=== PATIENT | female | born 1955 | race Caucasian/White ===

== ENCOUNTER → 2016-11-08 | Outpatient (CLI) | payer MEDICARE, BC ==
[~2016-11-08] MED LIST: CIPROFLOXACIN500 MG PO; PYRIDIUM200 MG PO; VICODIN 500 MG-1 TAB PO
[2016-11-08 10:10] LABS: BASO # 0.1 10*3/uL (0.0-0.1); BASO % 0.8 % (0.0-1.0); EOS # 0.2 10*3/uL (0.0-0.4); EOS % 3.4 % (1.0-4.0); HEMATOCRIT 38.1 % (37.0-47.0); HEMOGLOBIN 11.7 g/dl (12.0-16.0); LYMPH # 1.1 10*3/uL (1.3-4.4); LYMPH % 16.7 % (27.0-41.0); MEAN CELL VOLUME 87.6 fl (81.0-99.0); MEAN CORPUSCULAR HGB 26.9 pg (27.0-31.0); MEAN CORPUSCULAR HGB CONC 30.7 g/dl (33.0-37.0); MEAN PLATELET VOLUME 12.2 fl (9.6-12.3); MONO # 0.7 10*3/uL (0.1-1.0); MONO % 10.4 % (3.0-9.0); NEUT # 4.4 10*3/uL (2.3-7.9); NEUT % 68.4 % (47.0-73.0); PLATELET COUNT AUTOMATED 198 10*3/uL (130-400); RED BLOOD COUNT 4.35 10*6/uL (4.10-5.10); RED CELL DISTRI WIDTH 14.5 % (0-14.5); WHITE BLOOD COUNT 6.5 10*3/uL (4.8-10.8)
[2016-11-08 10:40] LABS: ALKALINE PHOSPHATASE 155 U/L (45-117); BILIRUBIN, TOTAL 0.4 mg/dl (0.2-1.0); BUN 22 mg/dl (7-24); CARBON DIOXIDE 26 mmol/L (21-32); CHLORIDE 108 mmol/L (98-107); CHOLESTEROL 132 mg/dL (<200); EST GLOM FILT AFRICAN AMERICAN > 60 ml/min; GLUCOSE 77 mg/dL (65-99); HDL CHOLESTEROL 57 mg/dl (40-60); IRON 59 ug/dL (50-170); IRON SATURATION 26 %; LDL CHOLESTEROL 45 mg/dL (9-159); MAGNESIUM 1.8 mg/dL (1.5-2.1); PHOSPHOROUS 3.2 mg/dL (2.5-4.9); POTASSIUM 4.4 mmol/L (3.5-5.1); SGOT/AST 22 IU/L (3-35); SGPT/ALT 28 U/L (12-78); SODIUM 141 mmol/L (136-145); TRIGLYCERIDES 150 mg/dl (<150); UIBC 163 ug/dL (110-365); URIC ACID 4.8 mg/dL (2.6-6.0); VLDL CHOLESTEROL 30 mg/dL (6-40)
[2016-11-08 11:02] LABS: HEMOGLOBIN A1c 5.4 % (4.8-5.6)
[2016-11-08 12:28] LABS: URINE TP/CRE RATIO 0.6 (<0.21)
[2016-11-09 09:12] LABS: TRANSFERRIN 004937 181 mg/dL (200-370)
[2016-11-09 15:06] LABS: CYCLOSPORINE, BLOOD 294 ng/mL (100-400)
== END ==
LOC: LAB 09:38
PROVIDERS: Internal Medicine Nephrology
DX: I15.1 Hypertension secondary to other renal disorders (principal); N28.89 Other specified disorders of kidney and ureter; D64.9 Anemia, unspecified; D89.9 Disorder involving the immune mechanism, unspecified; Z94.0 Kidney transplant status; Z79.899 Other long term (current) drug therapy

== ENCOUNTER → 2017-01-26 | Outpatient (CLI) | payer MEDICARE, BC ==
[2017-01-26 10:06] LABS: BASO # 0.1 10*3/uL (0.0-0.1); BASO % 1.5 % (0.0-1.0); EOS # 0.4 10*3/uL (0.0-0.4); EOS % 6.6 % (1.0-4.0); HEMATOCRIT 36.1 % (37.0-47.0); HEMOGLOBIN 11.3 g/dl (12.0-16.0); LYMPH # 0.9 10*3/uL (1.3-4.4); MEAN CELL VOLUME 87.6 fl (81.0-99.0); MEAN CORPUSCULAR HGB 27.4 pg (27.0-31.0); MEAN CORPUSCULAR HGB CONC 31.3 g/dl (33.0-37.0); MEAN PLATELET VOLUME 12.3 fl (9.6-12.3); MONO # 0.8 10*3/uL (0.1-1.0); MONO % 15.2 % (3.0-9.0); NEUT # 3.3 10*3/uL (2.3-7.9); NEUT % 60.3 % (47.0-73.0); PLATELET COUNT AUTOMATED 191 10*3/uL (130-400); RED BLOOD COUNT 4.12 10*6/uL (4.10-5.10); RED CELL DISTRI WIDTH 13.9 % (0-14.5); WHITE BLOOD COUNT 5.5 10*3/uL (4.8-10.8)
[2017-01-26 10:27] LABS: BUN 33 mg/dl (7-24); CARBON DIOXIDE 25 mmol/L (21-32); CHLORIDE 109 mmol/L (98-107); EST GLOM FILT AFRICAN AMERICAN > 60 ml/min; GLUCOSE 76 mg/dL (65-99); POTASSIUM 4.6 mmol/L (3.5-5.1); SODIUM 143 mmol/L (136-145)
[2017-01-27 16:11] LABS: CYCLOSPORINE, BLOOD 220 ng/mL (100-400)
== END ==
LOC: LAB 09:19
PROVIDERS: Internal Medicine Nephrology
DX: I15.1 Hypertension secondary to other renal disorders (principal); N28.89 Other specified disorders of kidney and ureter; D64.9 Anemia, unspecified; D89.9 Disorder involving the immune mechanism, unspecified; Z94.0 Kidney transplant status; Z79.899 Other long term (current) drug therapy

== ENCOUNTER → 2017-04-12 | Outpatient (CLI) | payer MEDICARE, BC ==
[2017-04-12 10:36] LABS: BASO # 0.1 10*3/uL (0.0-0.1); BASO % 1.1 % (0.0-1.0); EOS # 0.3 10*3/uL (0.0-0.4); EOS % 4.4 % (1.0-4.0); HEMOGLOBIN 11.5 g/dl (12.0-16.0); LYMPH % 17.1 % (27.0-41.0); MEAN CELL VOLUME 86.9 fl (81.0-99.0); MEAN CORPUSCULAR HGB CONC 31.1 g/dl (33.0-37.0); MEAN PLATELET VOLUME 12.3 fl (9.6-12.3); MONO # 0.8 10*3/uL (0.1-1.0); MONO % 12.5 % (3.0-9.0); NEUT # 3.9 10*3/uL (2.3-7.9); NEUT % 64.6 % (47.0-73.0); PLATELET COUNT AUTOMATED 172 10*3/uL (130-400); RED BLOOD COUNT 4.26 10*6/uL (4.10-5.10); RED CELL DISTRI WIDTH 13.6 % (0-14.5); WHITE BLOOD COUNT 6.1 10*3/uL (4.8-10.8)
[2017-04-12 10:45] LABS: BUN 29 mg/dl (7-24); CARBON DIOXIDE 25 mmol/L (21-32); CHLORIDE 108 mmol/L (98-107); CHOLESTEROL 148 mg/dL (<200); EST GLOM FILT AFRICAN AMERICAN > 60 ml/min; GLUCOSE 84 mg/dL (65-99); HDL CHOLESTEROL 49 mg/dl (40-60); LDL CHOLESTEROL 70 mg/dL (9-159); POTASSIUM 4.7 mmol/L (3.5-5.1); SODIUM 141 mmol/L (136-145); TRIGLYCERIDES 144 mg/dl (<150); VLDL CHOLESTEROL 29 mg/dL (6-40)
[2017-04-13 15:08] LABS: CYCLOSPORINE, BLOOD 292 ng/mL (100-400)
== END ==
LOC: LAB 09:19
PROVIDERS: Internal Medicine Nephrology
DX: Z48.298 Encounter for aftercare following other organ transplant (principal); D89.0 Polyclonal hypergammaglobulinemia; R79.9 Abnormal finding of blood chemistry, unspecified; Z94.0 Kidney transplant status; Z94.83 Pancreas transplant status

== ENCOUNTER → 2017-06-07 | Outpatient (CLI) | payer MEDICARE, MEDICAID ==
[2017-06-07 10:12] LABS: BASO # 0.1 10*3/uL (0.0-0.1); BASO % 0.9 % (0.0-1.0); EOS # 0.3 10*3/uL (0.0-0.4); EOS % 5.1 % (1.0-4.0); HEMATOCRIT 35.7 % (37.0-47.0); LYMPH # 0.9 10*3/uL (1.3-4.4); MEAN CELL VOLUME 87.3 fl (81.0-99.0); MEAN CORPUSCULAR HGB 26.9 pg (27.0-31.0); MEAN CORPUSCULAR HGB CONC 30.8 g/dl (33.0-37.0); MONO # 0.9 10*3/uL (0.1-1.0); MONO % 15.8 % (3.0-9.0); NEUT # 3.4 10*3/uL (2.3-7.9); NEUT % 61.8 % (47.0-73.0); PLATELET COUNT AUTOMATED 188 10*3/uL (130-400); RED BLOOD COUNT 4.09 10*6/uL (4.10-5.10); RED CELL DISTRI WIDTH 13.9 % (0-14.5); WHITE BLOOD COUNT 5.5 10*3/uL (4.8-10.8)
[2017-06-07 10:30] LABS: ALBUMIN 2.8 gm/dl (3.1-4.5); ALKALINE PHOSPHATASE 187 U/L (45-117); BILIRUBIN, TOTAL 0.4 mg/dl (0.2-1.0); BUN 29 mg/dl (7-24); CARBON DIOXIDE 25 mmol/L (21-32); CHLORIDE 109 mmol/L (98-107); CHOLESTEROL 175 mg/dL (<200); EST GLOM FILT AFRICAN AMERICAN > 60 ml/min; GLUCOSE 80 mg/dL (65-99); MAGNESIUM 1.8 mg/dL (1.5-2.1); PHOSPHOROUS 3.3 mg/dL (2.5-4.9); POTASSIUM 4.3 mmol/L (3.5-5.1); SGOT/AST 14 IU/L (3-35); SGPT/ALT 18 U/L (12-78); SODIUM 140 mmol/L (136-145); URIC ACID 5.9 mg/dL (2.6-6.0)
== END | disposition home or self-care (01) ==
LOC: LAB 09:41
PROVIDERS: Internal Medicine Nephrology
DX: Z48.298 Encounter for aftercare following other organ transplant (principal); R79.9 Abnormal finding of blood chemistry, unspecified; D89.9 Disorder involving the immune mechanism, unspecified; Z94.0 Kidney transplant status; Z94.83 Pancreas transplant status

== ENCOUNTER → 2017-08-30 | Outpatient (CLI) | payer MEDICARE, MEDICAID | LOC: RAD 10:56 | DX: M54.16 Radiculopathy, lumbar region (principal); I70.0 Atherosclerosis of aorta ==

== ENCOUNTER → 2017-10-09 | Outpatient (CLI) | payer MEDICARE, MEDICAID ==
[2017-10-09 10:25] LABS: BASO # 0.1 10*3/uL (0.0-0.1); BASO % 0.8 % (0.0-1.0); EOS # 0.2 10*3/uL (0.0-0.4); EOS % 2.8 % (1.0-4.0); HEMATOCRIT 37.7 % (37.0-47.0); HEMOGLOBIN 11.8 g/dl (12.0-16.0); LYMPH # 0.8 10*3/uL (1.3-4.4); LYMPH % 10.8 % (27.0-41.0); MEAN CELL VOLUME 87.7 fl (81.0-99.0); MEAN CORPUSCULAR HGB 27.4 pg (27.0-31.0); MEAN CORPUSCULAR HGB CONC 31.3 g/dl (33.0-37.0); MEAN PLATELET VOLUME 12.1 fl (9.6-12.3); MONO # 0.8 10*3/uL (0.1-1.0); NEUT # 5.5 10*3/uL (2.3-7.9); NEUT % 74.2 % (47.0-73.0); PLATELET COUNT AUTOMATED 230 10*3/uL (130-400); RED CELL DISTRI WIDTH 14.4 % (0-14.5); WHITE BLOOD COUNT 7.4 10*3/uL (4.8-10.8)
[2017-10-09 10:50] LABS: ALBUMIN 2.9 gm/dl (3.1-4.5); ALKALINE PHOSPHATASE 201 U/L (45-117); BUN 23 mg/dl (7-24); CHLORIDE 108 mmol/L (98-107); CHOLESTEROL 169 mg/dL (<200); CREATININE 0.93 mg/dL (0.55-1.02); PHOSPHOROUS 2.6 mg/dL (2.5-4.9); POTASSIUM 4.3 mmol/L (3.5-5.1); SGOT/AST 18 IU/L (3-35); SGPT/ALT 20 U/L (12-78); SODIUM 142 mmol/L (136-145); TOTAL PROTEIN 7.5 gm/dL (6.4-8.2); URIC ACID 5.2 mg/dL (2.6-6.0)
[2017-10-10 14:06] LABS: CYCLOSPORINE, BLOOD 244 ng/mL (100-400)
== END | disposition home or self-care (01) ==
LOC: LAB 09:51
PROVIDERS: Internal Medicine Nephrology
DX: Z48.298 Encounter for aftercare following other organ transplant (principal); R79.9 Abnormal finding of blood chemistry, unspecified; D89.9 Disorder involving the immune mechanism, unspecified; Z94.0 Kidney transplant status; Z94.83 Pancreas transplant status

== ENCOUNTER → 2018-01-24 | Outpatient (CLI) | payer MEDICARE ==
[2018-01-24 10:15] LABS: BASO % 0.7 % (0.0-1.0); EOS # 0.2 10*3/uL (0.0-0.4); EOS % 4.1 % (1.0-4.0); HEMATOCRIT 38.1 % (37.0-47.0); HEMOGLOBIN 11.8 g/dl (12.0-16.0); LYMPH # 0.9 10*3/uL (1.3-4.4); LYMPH % 16.8 % (27.0-41.0); MEAN CORPUSCULAR HGB 26.9 pg (27.0-31.0); MEAN PLATELET VOLUME 12.6 fl (9.6-12.3); MONO # 0.8 10*3/uL (0.1-1.0); MONO % 14.6 % (3.0-9.0); NEUT # 3.4 10*3/uL (2.3-7.9); NEUT % 63.4 % (47.0-73.0); PLATELET COUNT AUTOMATED 166 10*3/uL (130-400); RED BLOOD COUNT 4.38 10*6/uL (4.10-5.10); RED CELL DISTRI WIDTH 13.7 % (0-14.5); WHITE BLOOD COUNT 5.4 10*3/uL (4.8-10.8)
[2018-01-24 10:50] LABS: ALBUMIN 2.9 gm/dl (3.1-4.5); ALKALINE PHOSPHATASE 189 U/L (45-117); BUN 20 mg/dl (7-24); CHLORIDE 107 mmol/L (98-107); CHOLESTEROL 163 mg/dL (<200); CREATININE 0.88 mg/dL (0.55-1.02); POTASSIUM 4.2 mmol/L (3.5-5.1); SGOT/AST 18 IU/L (3-35); SGPT/ALT 18 U/L (12-78); SODIUM 142 mmol/L (136-145); TOTAL PROTEIN 7.3 gm/dL (6.4-8.2); URIC ACID 5.5 mg/dL (2.6-6.0)
== END | disposition home or self-care (01) ==
LOC: LAB 09:55
PROVIDERS: Internal Medicine Nephrology
DX: R79.9 Abnormal finding of blood chemistry, unspecified (principal); Z94.83 Pancreas transplant status; Z94.0 Kidney transplant status; D89.9 Disorder involving the immune mechanism, unspecified; Z48.298 Encounter for aftercare following other organ transplant

== ENCOUNTER → 2018-04-12 | Outpatient (CLI) | payer MEDICARE ==
[2018-04-12 09:45] LABS: BASO # 0.1 10*3/uL (0.0-0.1); BASO % 0.9 % (0.0-1.0); EOS # 0.2 10*3/uL (0.0-0.4); EOS % 3.5 % (1.0-4.0); HEMATOCRIT 37.6 % (37.0-47.0); HEMOGLOBIN 11.5 g/dl (12.0-16.0); LYMPH # 0.8 10*3/uL (1.3-4.4); MEAN CELL VOLUME 87.9 fl (81.0-99.0); MEAN CORPUSCULAR HGB 26.9 pg (27.0-31.0); MEAN CORPUSCULAR HGB CONC 30.6 g/dl (33.0-37.0); MEAN PLATELET VOLUME 13.2 fl (9.6-12.3); MONO # 0.8 10*3/uL (0.1-1.0); MONO % 14.5 % (3.0-9.0); NEUT # 3.6 10*3/uL (2.3-7.9); NEUT % 66.7 % (47.0-73.0); PLATELET COUNT AUTOMATED 151 10*3/uL (130-400); RED BLOOD COUNT 4.28 10*6/uL (4.10-5.10); RED CELL DISTRI WIDTH 14.6 % (0-14.5); WHITE BLOOD COUNT 5.4 10*3/uL (4.8-10.8)
[2018-04-12 10:11] LABS: ALBUMIN 3.2 gm/dl (3.1-4.5); CREATININE 1.16 mg/dL (0.55-1.02); PHOSPHOROUS 3.4 mg/dL (2.5-4.9); POTASSIUM 4.3 mmol/L (3.5-5.1); TOTAL PROTEIN 7.2 gm/dL (6.4-8.2); URIC ACID 7.2 mg/dL (2.6-6.0)
[2018-04-12 10:28] LABS: FERRITIN 79.3 ng/mL (10.0-291.0); PTH INTACT 114.7 pg/mL (14.0-72.0)
[2018-04-13 08:09] LABS: TRANSFERRIN 004937 182 mg/dL (200-370)
[2018-04-13 15:07] LABS: CYCLOSPORINE, BLOOD 132 ng/mL (100-400)
[2018-04-15 08:06] LABS: SIROLIMUS (RAPAMUNE) 716712 9.3 ng/mL (3.0-20.0)
[2018-04-16 15:07] LABS: BK QUANTITATION PCR Negative (Negative)
== END | disposition home or self-care (01) ==
LOC: LAB 08:48
PROVIDERS: Internal Medicine Nephrology
DX: D50.9 Iron deficiency anemia, unspecified (principal); D89.9 Disorder involving the immune mechanism, unspecified; R60.0 Localized edema; Z94.0 Kidney transplant status; Z79.899 Other long term (current) drug therapy

== ENCOUNTER → 2018-08-10 | Outpatient (CLI) | payer MEDICARE ==
[2018-08-10 10:02] LABS: BASO # 0.1 10*3/uL (0.0-0.1); BASO % 1.2 % (0.0-1.0); EOS # 0.4 10*3/uL (0.0-0.4); EOS % 6.2 % (1.0-4.0); HEMATOCRIT 36.7 % (37.0-47.0); HEMOGLOBIN 11.4 g/dl (12.0-16.0); LYMPH # 0.9 10*3/uL (1.3-4.4); MEAN CORPUSCULAR HGB 27.3 pg (27.0-31.0); MEAN CORPUSCULAR HGB CONC 31.1 g/dl (33.0-37.0); MEAN PLATELET VOLUME 12.8 fl (9.6-12.3); MONO # 0.9 10*3/uL (0.1-1.0); MONO % 15.3 % (3.0-9.0); NEUT # 3.6 10*3/uL (2.3-7.9); PLATELET COUNT AUTOMATED 200 10*3/uL (130-400); RED BLOOD COUNT 4.17 10*6/uL (4.10-5.10); RED CELL DISTRI WIDTH 14.4 % (0-14.5); WHITE BLOOD COUNT 5.8 10*3/uL (4.8-10.8)
[2018-08-10 10:12] LABS: BUN 22 mg/dl (7-24); CHLORIDE 109 mmol/L (98-107); CREATININE 0.88 mg/dL (0.55-1.02); POTASSIUM 4.4 mmol/L (3.5-5.1); SODIUM 142 mmol/L (136-145)
== END | disposition home or self-care (01) ==
LOC: LAB 09:25
PROVIDERS: Internal Medicine Nephrology
DX: I12.9 Hypertensive chronic kidney disease with stage 1 through stage 4 chronic kidney disease, or unspecified chronic kidney disease (principal); N18.9 Chronic kidney disease, unspecified; E78.5 Hyperlipidemia, unspecified; Z94.0 Kidney transplant status

== ENCOUNTER → 2018-11-06 | Outpatient (CLI) | payer MEDICARE ==
[2018-11-06 12:28] LABS: BUN 25 mg/dl (7-24); CHLORIDE 109 mmol/L (98-107); CREATININE 1.05 mg/dL (0.55-1.02); POTASSIUM 4.6 mmol/L (3.5-5.1); SODIUM 143 mmol/L (136-145)
[2018-11-07 15:07] LABS: CYCLOSPORINE, BLOOD 191 ng/mL (100-400)
[2018-11-09 10:09] LABS: SIROLIMUS (RAPAMUNE) 716712 7.8 ng/mL (3.0-20.0)
== END | disposition home or self-care (01) ==
LOC: LAB 11:10
PROVIDERS: Internal Medicine Nephrology
DX: Z09 Encounter for follow-up examination after completed treatment for conditions other than malignant neoplasm (principal); R79.9 Abnormal finding of blood chemistry, unspecified; Z94.0 Kidney transplant status

== ENCOUNTER → 2019-01-31 | Outpatient (CLI) | payer MEDICARE, MEDICAID ==
[2019-01-31 10:02] LABS: BASO # 0.1 10*3/uL (0.0-0.1); BASO % 1.2 % (0.0-1.0); EOS # 0.4 10*3/uL (0.0-0.4); EOS % 6.9 % (1.0-4.0); HEMATOCRIT 37.8 % (37.0-47.0); LYMPH # 0.9 10*3/uL (1.3-4.4); LYMPH % 14.3 % (27.0-41.0); MEAN CELL VOLUME 86.7 fl (81.0-99.0); MEAN CORPUSCULAR HGB 27.5 pg (27.0-31.0); MEAN CORPUSCULAR HGB CONC 31.7 g/dl (33.0-37.0); MEAN PLATELET VOLUME 12.7 fl (9.6-12.3); MONO # 0.8 10*3/uL (0.1-1.0); MONO % 12.6 % (3.0-9.0); NEUT # 3.9 10*3/uL (2.3-7.9); NEUT % 64.8 % (47.0-73.0); PLATELET COUNT AUTOMATED 183 10*3/uL (130-400); RED BLOOD COUNT 4.36 10*6/uL (4.10-5.10); RED CELL DISTRI WIDTH 13.8 % (0-14.5)
[2019-01-31 10:36] LABS: CHLORIDE 110 mmol/L (98-107); PHOSPHOROUS 3.2 mg/dL (2.5-4.9); POTASSIUM 3.9 mmol/L (3.5-5.1); SODIUM 141 mmol/L (136-145)
[2019-01-31 10:45] LABS: ALBUMIN 2.7 gm/dl (3.1-4.5); ALKALINE PHOSPHATASE 188 U/L (45-117); BUN 31 mg/dl (7-24); CHOLESTEROL 220 mg/dL (<200); CREATININE 0.97 mg/dL (0.55-1.02); HDL CHOLESTEROL 43 mg/dl (40-60); IRON 53 ug/dL (50-170); LDL CHOLESTEROL 137 mg/dL (9-159); SGOT/AST 13 IU/L (3-35); SGPT/ALT 16 U/L (12-78); TOTAL IRON BINDING CAPACITY 189 ug/dl (250-450); TOTAL PROTEIN 6.8 gm/dL (6.4-8.2); TRIGLYCERIDES 199 mg/dl (<150); URIC ACID 6.2 mg/dL (2.6-6.0); VLDL CHOLESTEROL 40 mg/dL (6-40)
[2019-01-31 11:24] LABS: FERRITIN 61.7 ng/mL (10.0-291.0)
[2019-01-31 11:25] LABS: PTH INTACT 66.2 pg/mL (18.5-88.0)
[2019-02-01 15:04] LABS: CYCLOSPORINE, BLOOD 315 ng/mL (100-400)
[2019-02-02 09:05] LABS: SIROLIMUS (RAPAMUNE) 716712 5.1 ng/mL (3.0-20.0)
[2019-02-02 14:04] LABS: BK QUANTITATION PCR Negative (Negative)
== END | disposition home or self-care (01) ==
LOC: LAB 09:24
PROVIDERS: Internal Medicine Nephrology
DX: I12.9 Hypertensive chronic kidney disease with stage 1 through stage 4 chronic kidney disease, or unspecified chronic kidney disease (principal); N18.9 Chronic kidney disease, unspecified; E78.5 Hyperlipidemia, unspecified; D50.9 Iron deficiency anemia, unspecified; D89.9 Disorder involving the immune mechanism, unspecified; Z94.0 Kidney transplant status; Z79.899 Other long term (current) drug therapy

== ENCOUNTER → 2019-07-04 | Outpatient (CLI) | payer MEDICARE, MEDICAID ==
[2019-07-04 10:44] LABS: BASO # 0.1 10*3/uL (0.0-0.1); BASO % 1.3 % (0.0-1.0); EOS # 0.3 10*3/uL (0.0-0.4); EOS % 4.8 % (1.0-4.0); HEMATOCRIT 38.1 % (37.0-47.0); HEMOGLOBIN 11.9 g/dl (12.0-16.0); LYMPH # 0.9 10*3/uL (1.3-4.4); LYMPH % 16.7 % (27.0-41.0); MEAN CELL VOLUME 88.6 fl (81.0-99.0); MEAN CORPUSCULAR HGB 27.7 pg (27.0-31.0); MEAN CORPUSCULAR HGB CONC 31.2 g/dl (33.0-37.0); MEAN PLATELET VOLUME 12.6 fl (9.6-12.3); MONO # 0.8 10*3/uL (0.1-1.0); MONO % 14.7 % (3.0-9.0); NEUT # 3.5 10*3/uL (2.3-7.9); NEUT % 62.3 % (47.0-73.0); PLATELET COUNT AUTOMATED 194 10*3/uL (130-400); RED CELL DISTRI WIDTH 13.9 % (0-14.5); WHITE BLOOD COUNT 5.6 10*3/uL (4.8-10.8)
[2019-07-04 11:25] LABS: ALBUMIN 3.2 gm/dl (3.1-4.5); ALKALINE PHOSPHATASE 171 U/L (45-117); BUN 27 mg/dl (7-24); CHLORIDE 108 mmol/L (98-107); CHOLESTEROL 194 mg/dL (<200); CREATININE 0.94 mg/dL (0.55-1.02); HDL CHOLESTEROL 52 mg/dl (40-60); IRON 53 ug/dL (50-170); LDL CHOLESTEROL 117 mg/dL (9-159); PHOSPHOROUS 3.4 mg/dL (2.5-4.9); POTASSIUM 4.1 mmol/L (3.5-5.1); SGOT/AST 11 IU/L (3-35); SGPT/ALT 15 U/L (12-78); SODIUM 140 mmol/L (136-145); TOTAL IRON BINDING CAPACITY 228 ug/dl (250-450); TRIGLYCERIDES 124 mg/dl (<150); URIC ACID 6.1 mg/dL (2.6-6.0); VLDL CHOLESTEROL 25 mg/dL (6-40)
[2019-07-04 11:34] LABS: FERRITIN 61.6 ng/mL (10.0-291.0); PTH INTACT 74.2 pg/mL (18.5-88.0)
[2019-07-04 14:15] LABS: URINE CREATININE RANDOM < 13.00 mg/dL
[2019-07-05 15:04] LABS: CYCLOSPORINE, BLOOD 341 ng/mL (100-400)
[2019-07-06 18:05] LABS: SIROLIMUS (RAPAMUNE) 716712 4.4 ng/mL (3.0-20.0)
== END | disposition home or self-care (01) ==
LOC: LAB 09:46
PROVIDERS: Nurse Practitioner
DX: I10 Essential (primary) hypertension (principal); D89.9 Disorder involving the immune mechanism, unspecified; R79.9 Abnormal finding of blood chemistry, unspecified; Z94.83 Pancreas transplant status; Z94.0 Kidney transplant status

== ENCOUNTER → 2019-09-27 | Outpatient (CLI) | payer OTHER, MEDICAID ==
[2019-09-27 10:32] LABS: BASO # 0.1 10*3/uL (0.0-0.1); BASO % 0.8 % (0.0-1.0); EOS # 0.2 10*3/uL (0.0-0.4); EOS % 3.7 % (1.0-4.0); HEMOGLOBIN 11.4 g/dl (12.0-16.0); LYMPH # 0.9 10*3/uL (1.3-4.4); LYMPH % 15.4 % (27.0-41.0); MEAN CELL VOLUME 88.1 fl (81.0-99.0); MEAN CORPUSCULAR HGB 27.1 pg (27.0-31.0); MEAN CORPUSCULAR HGB CONC 30.8 g/dl (33.0-37.0); MEAN PLATELET VOLUME 12.8 fl (9.6-12.3); MONO # 0.7 10*3/uL (0.1-1.0); MONO % 12.3 % (3.0-9.0); NEUT # 4.1 10*3/uL (2.3-7.9); NEUT % 67.5 % (47.0-73.0); PLATELET COUNT AUTOMATED 191 10*3/uL (130-400); RED CELL DISTRI WIDTH 14.3 % (0-14.5)
[2019-09-27 10:37] LABS: ALKALINE PHOSPHATASE 150 U/L (45-117); BUN 31 mg/dl (7-24); CHLORIDE 111 mmol/L (98-107); CHOLESTEROL 178 mg/dL (<200); CREATININE 1.06 mg/dL (0.55-1.02); HDL CHOLESTEROL 53 mg/dl (40-60); IRON 67 ug/dL (50-170); LDL CHOLESTEROL 95 mg/dL (9-159); PHOSPHOROUS 3.7 mg/dL (2.5-4.9); POTASSIUM 4.1 mmol/L (3.5-5.1); SGOT/AST 17 IU/L (3-35); SGPT/ALT 18 U/L (12-78); SODIUM 142 mmol/L (136-145); TOTAL IRON BINDING CAPACITY 210 ug/dl (250-450); TRIGLYCERIDES 149 mg/dl (<150); URIC ACID 6.4 mg/dL (2.6-6.0); VLDL CHOLESTEROL 30 mg/dL (6-40)
[2019-09-27 10:56] LABS: URINE CREATININE RANDOM 64.4 mg/dL
[2019-09-27 12:06] LABS: FERRITIN 73.6 ng/mL (10.0-291.0); PTH INTACT 71.8 pg/mL (18.5-88.0)
[2019-09-30 13:09] LABS: CYCLOSPORINE, BLOOD 329 ng/mL (100-400)
[2019-09-30 17:11] LABS: SIROLIMUS (RAPAMUNE) 716712 8.7 ng/mL (3.0-20.0)
== END | disposition home or self-care (01) ==
LOC: LAB 09:32
PROVIDERS: Nurse Practitioner
DX: I10 Essential (primary) hypertension (principal); D89.9 Disorder involving the immune mechanism, unspecified; R79.9 Abnormal finding of blood chemistry, unspecified; Z94.0 Kidney transplant status; Z94.83 Pancreas transplant status

== ENCOUNTER → 2020-01-09 | Outpatient (CLI) | payer OTHER, MEDICAID ==
[2020-01-09 10:20] LABS: BASO # 0.1 10*3/uL (0.0-0.1); BASO % 1.1 % (0.0-1.0); EOS # 0.2 10*3/uL (0.0-0.4); EOS % 3.2 % (1.0-4.0); HEMATOCRIT 36.3 % (37.0-47.0); HEMOGLOBIN 11.1 g/dl (12.0-16.0); LYMPH # 1.1 10*3/uL (1.3-4.4); LYMPH % 16.3 % (27.0-41.0); MEAN CELL VOLUME 89.2 fl (81.0-99.0); MEAN CORPUSCULAR HGB 27.3 pg (27.0-31.0); MEAN CORPUSCULAR HGB CONC 30.6 g/dl (33.0-37.0); MEAN PLATELET VOLUME 12.3 fl (9.6-12.3); MONO # 0.8 10*3/uL (0.1-1.0); MONO % 12.2 % (3.0-9.0); NEUT # 4.3 10*3/uL (2.3-7.9); NEUT % 66.9 % (47.0-73.0); PLATELET COUNT AUTOMATED 180 10*3/uL (130-400); RED BLOOD COUNT 4.07 10*6/uL (4.10-5.10); RED CELL DISTRI WIDTH 13.7 % (0-14.5); WHITE BLOOD COUNT 6.5 10*3/uL (4.8-10.8)
[2020-01-09 10:29] LABS: URINE CREATININE RANDOM 43.7 mg/dL
[2020-01-09 10:46] LABS: CREATININE 1.16 mg/dL (0.55-1.02); PHOSPHOROUS 3.2 mg/dL (2.5-4.9); POTASSIUM 4.1 mmol/L (3.5-5.1); TOTAL PROTEIN 7.2 gm/dL (6.4-8.2); URIC ACID 5.9 mg/dL (2.6-6.0)
[2020-01-09 11:55] LABS: FERRITIN 98.7 ng/mL (10.0-291.0); PTH INTACT 89.5 pg/mL (18.5-88.0)
[2020-01-10 14:07] LABS: CYCLOSPORINE, BLOOD 383 ng/mL (100-400)
[2020-01-11 06:08] LABS: SIROLIMUS (RAPAMUNE) 6.8 ng/mL (3.0-20.0)
== END | disposition home or self-care (01) ==
LOC: LAB 09:28
PROVIDERS: Nurse Practitioner
DX: I10 Essential (primary) hypertension (principal); D89.9 Disorder involving the immune mechanism, unspecified; R79.9 Abnormal finding of blood chemistry, unspecified; E78.00 Pure hypercholesterolemia, unspecified; E55.9 Vitamin D deficiency, unspecified; Z94.83 Pancreas transplant status; Z94.0 Kidney transplant status

== ENCOUNTER → 2020-03-31 | Outpatient (CLI) | payer OTHER ==
[2020-03-31 10:57] LABS: BASO # 0.1 10*3/uL (0.0-0.1); BASO % 1.2 % (0.0-1.0); EOS # 0.3 10*3/uL (0.0-0.4); EOS % 4.2 % (1.0-4.0); HEMATOCRIT 36.5 % (37.0-47.0); LYMPH # 1.2 10*3/uL (1.3-4.4); LYMPH % 16.3 % (27.0-41.0); MEAN CELL VOLUME 89.9 fl (81.0-99.0); MEAN CORPUSCULAR HGB 28.1 pg (27.0-31.0); MEAN CORPUSCULAR HGB CONC 31.2 g/dl (33.0-37.0); MEAN PLATELET VOLUME 11.8 fl (9.6-12.3); MONO # 0.8 10*3/uL (0.1-1.0); NEUT % 66.9 % (47.0-73.0); PLATELET COUNT AUTOMATED 208 10*3/uL (130-400); RED BLOOD COUNT 4.06 10*6/uL (4.10-5.10); RED CELL DISTRI WIDTH 14.6 % (0-14.5); WHITE BLOOD COUNT 7.5 10*3/uL (4.8-10.8)
[2020-03-31 11:15] LABS: URINE CREATININE RANDOM 47.5 mg/dL
[2020-03-31 11:24] LABS: URIC ACID 7.3 mg/dL (2.6-6.0)
[2020-03-31 11:26] LABS: CREATININE 1.36 mg/dL (0.55-1.02); POTASSIUM 4.7 mmol/L (3.5-5.1); TOTAL PROTEIN 7.4 gm/dL (6.4-8.2)
[2020-03-31 12:09] LABS: FERRITIN 96.9 ng/mL (10.0-291.0); PTH INTACT 88.4 pg/mL (18.5-88.0)
[2020-04-01 16:08] LABS: CYCLOSPORINE, BLOOD 329 ng/mL (100-400)
[2020-04-03 22:04] LABS: SIROLIMUS (RAPAMUNE) 5.6 ng/mL (3.0-20.0)
== END | disposition home or self-care (01) ==
LOC: LAB 10:24
PROVIDERS: Family Medicine
DX: I10 Essential (primary) hypertension (principal); E55.9 Vitamin D deficiency, unspecified; E78.00 Pure hypercholesterolemia, unspecified; R79.9 Abnormal finding of blood chemistry, unspecified; D89.9 Disorder involving the immune mechanism, unspecified; Z94.83 Pancreas transplant status; Z94.0 Kidney transplant status

== ENCOUNTER → 2020-07-02 | Outpatient (CLI) | payer OTHER ==
[2020-07-02 10:16] LABS: BASO # 0.1 10*3/uL (0.0-0.1); BASO % 1.1 % (0.0-1.0); EOS # 0.3 10*3/uL (0.0-0.4); EOS % 4.5 % (1.0-4.0); HEMATOCRIT 36.5 % (37.0-47.0); LYMPH # 1.3 10*3/uL (1.3-4.4); LYMPH % 17.7 % (27.0-41.0); MEAN CELL VOLUME 88.4 fl (81.0-99.0); MEAN CORPUSCULAR HGB 27.1 pg (27.0-31.0); MEAN CORPUSCULAR HGB CONC 30.7 g/dl (33.0-37.0); MEAN PLATELET VOLUME 11.8 fl (9.6-12.3); MONO # 0.9 10*3/uL (0.1-1.0); MONO % 11.8 % (3.0-9.0); NEUT # 4.8 10*3/uL (2.3-7.9); NEUT % 64.5 % (47.0-73.0); PLATELET COUNT AUTOMATED 220 10*3/uL (130-400); RED BLOOD COUNT 4.13 10*6/uL (4.10-5.10); RED CELL DISTRI WIDTH 14.3 % (0-14.5); WHITE BLOOD COUNT 7.4 10*3/uL (4.8-10.8)
[2020-07-02 10:30] LABS: URINE CREATININE RANDOM 59.4 mg/dL
[2020-07-02 10:53] LABS: ALBUMIN 3.1 gm/dl (3.1-4.5); ALKALINE PHOSPHATASE 158 U/L (45-117); BUN 29 mg/dl (7-24); CHLORIDE 113 mmol/L (98-107); CHOLESTEROL 173 mg/dL (<200); CREATININE 1.08 mg/dL (0.55-1.02); HDL CHOLESTEROL 50 mg/dl (40-60); IRON 56 ug/dL (50-170); LDL CHOLESTEROL 95 mg/dL (9-159); POTASSIUM 4.4 mmol/L (3.5-5.1); SGOT/AST 14 IU/L (3-35); SGPT/ALT 14 U/L (12-78); SODIUM 142 mmol/L (136-145); TOTAL IRON BINDING CAPACITY 214 ug/dl (250-450); TOTAL PROTEIN 7.5 gm/dL (6.4-8.2); TRIGLYCERIDES 140 mg/dl (<150); URIC ACID 6.5 mg/dL (2.6-6.0); VLDL CHOLESTEROL 28 mg/dL (6-40)
[2020-07-02 11:28] LABS: FERRITIN 89.2 ng/mL (10.0-291.0); PTH INTACT 89.1 pg/mL (18.5-88.0)
[2020-07-03 13:10] LABS: CYCLOSPORINE, BLOOD 294 ng/mL (100-400)
== END | disposition home or self-care (01) ==
LOC: LAB 09:50
PROVIDERS: ATTEND Internal Medicine Nephrology
DX: I10 Essential (primary) hypertension (principal); R79.9 Abnormal finding of blood chemistry, unspecified; D89.9 Disorder involving the immune mechanism, unspecified; Z94.83 Pancreas transplant status; Z94.0 Kidney transplant status

== ENCOUNTER → 2020-10-05 | Outpatient (CLI) | payer OTHER ==
[2020-10-05 10:35] LABS: BASO # 0.1 10*3/uL (0.0-0.1); BASO % 0.7 % (0.0-1.0); EOS # 0.2 10*3/uL (0.0-0.4); EOS % 3.3 % (1.0-4.0); HEMATOCRIT 37.3 % (37.0-47.0); LYMPH # 1.2 10*3/uL (1.3-4.4); LYMPH % 17.3 % (27.0-41.0); MEAN CELL VOLUME 87.1 fl (81.0-99.0); MEAN CORPUSCULAR HGB 26.6 pg (27.0-31.0); MEAN CORPUSCULAR HGB CONC 30.6 g/dl (33.0-37.0); MEAN PLATELET VOLUME 12.4 fl (9.6-12.3); MONO # 0.8 10*3/uL (0.1-1.0); MONO % 11.4 % (3.0-9.0); NEUT # 4.6 10*3/uL (2.3-7.9); PLATELET COUNT AUTOMATED 212 10*3/uL (130-400); RED BLOOD COUNT 4.28 10*6/uL (4.10-5.10); RED CELL DISTRI WIDTH 14.1 % (0-14.5); WHITE BLOOD COUNT 6.9 10*3/uL (4.8-10.8)
[2020-10-05 10:44] LABS: URINE CREATININE RANDOM 73.9 mg/dL
[2020-10-05 11:01] LABS: ALBUMIN 2.8 gm/dl (3.1-4.5); ALKALINE PHOSPHATASE 185 U/L (45-117); BUN 23 mg/dl (7-24); CHLORIDE 112 mmol/L (98-107); CHOLESTEROL 164 mg/dL (<200); CREATININE 1.03 mg/dL (0.55-1.02); HDL CHOLESTEROL 45 mg/dl (40-60); IRON 55 ug/dL (50-170); LDL CHOLESTEROL 60 mg/dL (9-159); POTASSIUM 4.4 mmol/L (3.5-5.1); SGOT/AST 19 IU/L (3-35); SGPT/ALT 13 U/L (12-78); SODIUM 140 mmol/L (136-145); TOTAL IRON BINDING CAPACITY 203 ug/dl (250-450); TOTAL PROTEIN 7.5 gm/dL (6.4-8.2); TRIGLYCERIDES 293 mg/dl (<150); URIC ACID 6.6 mg/dL (2.6-6.0); VLDL CHOLESTEROL 59 mg/dL (6-40)
[2020-10-06 15:12] LABS: CYCLOSPORINE, BLOOD 352 ng/mL (100-400)
== END | disposition home or self-care (01) ==
LOC: LAB 10:06
PROVIDERS: ATTEND Internal Medicine Nephrology
DX: I10 Essential (primary) hypertension (principal); R79.9 Abnormal finding of blood chemistry, unspecified; D89.9 Disorder involving the immune mechanism, unspecified; Z94.83 Pancreas transplant status; Z94.0 Kidney transplant status

== ENCOUNTER → 2021-01-04 | Outpatient (CLI) | payer OTHER ==
[2021-01-04 10:09] LABS: BASO # 0.1 10*3/uL (0.0-0.1); EOS # 0.4 10*3/uL (0.0-0.4); EOS % 5.7 % (1.0-4.0); HEMATOCRIT 38.9 % (37.0-47.0); LYMPH # 1.2 10*3/uL (1.3-4.4); LYMPH % 17.2 % (27.0-41.0); MEAN CELL VOLUME 88.4 fl (81.0-99.0); MEAN CORPUSCULAR HGB 26.6 pg (27.0-31.0); MEAN CORPUSCULAR HGB CONC 30.1 g/dl (33.0-37.0); MEAN PLATELET VOLUME 12.1 fl (9.6-12.3); MONO # 0.7 10*3/uL (0.1-1.0); MONO % 10.2 % (3.0-9.0); NEUT # 4.7 10*3/uL (2.3-7.9); NEUT % 65.5 % (47.0-73.0); PLATELET COUNT AUTOMATED 225 10*3/uL (130-400); RED CELL DISTRI WIDTH 14.2 % (0-14.5); WHITE BLOOD COUNT 7.2 10*3/uL (4.8-10.8)
[2021-01-04 10:31] LABS: URINE CREATININE RANDOM 47.9 mg/dL
[2021-01-04 10:41] LABS: ALBUMIN 2.9 gm/dl (3.1-4.5); CREATININE 1.14 mg/dL (0.55-1.02); POTASSIUM 4.8 mmol/L (3.5-5.1)
[2021-01-04 10:43] LABS: TOTAL PROTEIN 7.2 gm/dL (6.4-8.2); URIC ACID 7.3 mg/dL (2.6-6.0)
[2021-01-04 10:58] LABS: FERRITIN 85.2 ng/mL (10.0-291.0); PTH INTACT 98.4 pg/mL (18.5-88.0)
[2021-01-05 13:06] LABS: CYCLOSPORINE, BLOOD 329 ng/mL (100-400)
== END | disposition home or self-care (01) ==
LOC: LAB 09:37
PROVIDERS: Family Medicine; ATTEND Internal Medicine Nephrology
DX: I10 Essential (primary) hypertension (principal); E78.00 Pure hypercholesterolemia, unspecified; D89.9 Disorder involving the immune mechanism, unspecified; R79.9 Abnormal finding of blood chemistry, unspecified; Z94.83 Pancreas transplant status; Z94.0 Kidney transplant status

== ENCOUNTER → 2021-01-29 | Outpatient (CLI) | payer OTHER, MEDICAID ==
[2021-01-29 10:06] LABS: HEMATOCRIT 37.2 % (37.0-47.0); MEAN CELL VOLUME 89.2 fl (81.0-99.0); MEAN CORPUSCULAR HGB 27.3 pg (27.0-31.0); MEAN CORPUSCULAR HGB CONC 30.6 g/dl (33.0-37.0); MEAN PLATELET VOLUME 12.4 fl (9.6-12.3); RED BLOOD COUNT 4.17 10*6/uL (4.10-5.10); RED CELL DISTRI WIDTH 14.6 % (0-14.5); WHITE BLOOD COUNT 6.9 10*3/uL (4.8-10.8)
[2021-01-29 10:34] LABS: BUN 28 mg/dl (7-24); CHLORIDE 111 mmol/L (98-107); CREATININE 1.04 mg/dL (0.55-1.02); POTASSIUM 4.6 mmol/L (3.5-5.1); SODIUM 140 mmol/L (136-145)
[2021-02-01 15:06] LABS: CYCLOSPORINE, BLOOD 299 ng/mL (100-400)
== END | disposition home or self-care (01) ==
LOC: LAB 09:32
PROVIDERS: ATTEND Internal Medicine Nephrology
DX: Z94.0 Kidney transplant status (principal)

== ENCOUNTER → 2021-04-02 | Outpatient (CLI) | payer OTHER, MEDICAID ==
[2021-04-02 09:50] LABS: MEAN CELL VOLUME 88.4 fl (81.0-99.0); MEAN CORPUSCULAR HGB 27.4 pg (27.0-31.0); MEAN CORPUSCULAR HGB CONC 31.1 g/dl (33.0-37.0); MEAN PLATELET VOLUME 12.2 fl (9.6-12.3); RED BLOOD COUNT 4.3 10*6/uL (4.10-5.10); RED CELL DISTRI WIDTH 14.3 % (0-14.5); WHITE BLOOD COUNT 8.4 10*3/uL (4.8-10.8)
[2021-04-02 10:19] LABS: ALBUMIN 2.9 gm/dl (3.1-4.5); CREATININE 1.12 mg/dL (0.55-1.02); POTASSIUM 4.7 mmol/L (3.5-5.1); TOTAL PROTEIN 7.3 gm/dL (6.4-8.2)
== END | disposition home or self-care (01) ==
LOC: LAB 09:23
PROVIDERS: ATTEND Family Medicine
DX: I10 Essential (primary) hypertension (principal); E78.00 Pure hypercholesterolemia, unspecified; E11.9 Type 2 diabetes mellitus without complications; D64.9 Anemia, unspecified

== ENCOUNTER → 2021-07-05 | Outpatient (CLI) | payer OTHER ==
[2021-07-05 09:43] LABS: MEAN CORPUSCULAR HGB 27.3 pg (27.0-31.0); MEAN CORPUSCULAR HGB CONC 30.3 g/dl (33.0-37.0); MEAN PLATELET VOLUME 12.2 fl (9.6-12.3); RED BLOOD COUNT 4.11 10*6/uL (4.10-5.10); RED CELL DISTRI WIDTH 14.1 % (0-14.5); WHITE BLOOD COUNT 8.4 10*3/uL (4.8-10.8)
[2021-07-05 10:09] LABS: ALBUMIN 2.6 gm/dl (3.1-4.5); ALKALINE PHOSPHATASE 153 U/L (45-117); BUN 23 mg/dl (7-24); CHLORIDE 111 mmol/L (98-107); CHOLESTEROL 186 mg/dL (<200); CREATININE 0.93 mg/dL (0.55-1.02); LDL CHOLESTEROL 97 mg/dL (9-159); POTASSIUM 4.1 mmol/L (3.5-5.1); SGOT/AST 16 IU/L (3-35); SGPT/ALT 17 U/L (12-78); SODIUM 140 mmol/L (136-145); TOTAL PROTEIN 7.1 gm/dL (6.4-8.2); TRIGLYCERIDES 154 mg/dl (<150)
== END | disposition home or self-care (01) ==
LOC: LAB 09:18
PROVIDERS: ATTEND Family Medicine
DX: E11.9 Type 2 diabetes mellitus without complications (principal); E78.00 Pure hypercholesterolemia, unspecified; E55.9 Vitamin D deficiency, unspecified

== ENCOUNTER → 2021-08-04 | Outpatient (CLI) | payer OTHER ==
[2021-08-04 09:15] LABS: HEMATOCRIT 35.5 % (37.0-47.0); MEAN CELL VOLUME 90.1 fl (81.0-99.0); MEAN CORPUSCULAR HGB 27.7 pg (27.0-31.0); MEAN CORPUSCULAR HGB CONC 30.7 g/dl (33.0-37.0); MEAN PLATELET VOLUME 12.2 fl (9.6-12.3); RED BLOOD COUNT 3.94 10*6/uL (4.10-5.10); RED CELL DISTRI WIDTH 13.8 % (0-14.5); WHITE BLOOD COUNT 7.1 10*3/uL (4.8-10.8)
[2021-08-04 09:35] LABS: ALBUMIN 2.8 gm/dl (3.1-4.5); CREATININE 1.16 mg/dL (0.55-1.02); POTASSIUM 4.5 mmol/L (3.5-5.1)
== END | disposition home or self-care (01) ==
LOC: LAB 08:59
PROVIDERS: ATTEND Internal Medicine Nephrology
DX: Z94.0 Kidney transplant status (principal)

== ENCOUNTER → 2021-10-27 | Outpatient (CLI) | payer OTHER ==
[2021-10-27 10:04] LABS: HEMATOCRIT 36.4 % (37.0-47.0); MEAN CELL VOLUME 90.1 fl (81.0-99.0); MEAN CORPUSCULAR HGB 27.7 pg (27.0-31.0); MEAN CORPUSCULAR HGB CONC 30.8 g/dl (33.0-37.0); MEAN PLATELET VOLUME 12.3 fl (9.6-12.3); RED BLOOD COUNT 4.04 10*6/uL (4.10-5.10); RED CELL DISTRI WIDTH 14.2 % (0-14.5); WHITE BLOOD COUNT 7.3 10*3/uL (4.8-10.8)
[2021-10-27 10:22] LABS: ALBUMIN 2.8 gm/dl (3.1-4.5); BUN 33 mg/dl (7-24); CHLORIDE 111 mmol/L (98-107); CHOLESTEROL 164 mg/dL (<200); POTASSIUM 4.4 mmol/L (3.5-5.1); SGOT/AST 14 IU/L (3-35); SGPT/ALT 16 U/L (12-78); SODIUM 141 mmol/L (136-145); TRIGLYCERIDES 165 mg/dl (<150)
[2021-10-27 10:24] LABS: ALKALINE PHOSPHATASE 161 U/L (45-117); CPK 71 U/L (26-192); LDL CHOLESTEROL 76 mg/dL (9-159); TOTAL PROTEIN 7.1 gm/dL (6.4-8.2)
== END | disposition home or self-care (01) ==
LOC: LAB 09:22
PROVIDERS: ATTEND Family Medicine
DX: I10 Essential (primary) hypertension (principal); E78.00 Pure hypercholesterolemia, unspecified

== ENCOUNTER → 2022-01-28 | Outpatient (CLI) | payer OTHER ==
[2022-01-28 10:50] LABS: HEMATOCRIT 37.6 % (37.0-47.0); MEAN CELL VOLUME 87.9 fl (81.0-99.0); MEAN CORPUSCULAR HGB 26.4 pg (27.0-31.0); MEAN CORPUSCULAR HGB CONC 30.1 g/dl (33.0-37.0); MEAN PLATELET VOLUME 12.2 fl (9.6-12.3); RED BLOOD COUNT 4.28 10*6/uL (4.10-5.10); RED CELL DISTRI WIDTH 15.1 % (0-14.5); WHITE BLOOD COUNT 6.7 10*3/uL (4.8-10.8)
[2022-01-28 11:03] LABS: BUN 20 mg/dl (7-24); CHLORIDE 114 mmol/L (98-107); CREATININE 0.98 mg/dL (0.55-1.02); LIPASE 56 U/L (73-393); POTASSIUM 4.8 mmol/L (3.5-5.1); SODIUM 140 mmol/L (136-145)
[2022-01-31 15:07] LABS: CYCLOSPORINE, BLOOD 372 ng/mL (100-400)
== END | disposition home or self-care (01) ==
LOC: LAB 10:13
PROVIDERS: ATTEND Internal Medicine Nephrology
DX: I12.0 Hypertensive chronic kidney disease with stage 5 chronic kidney disease or end stage renal disease (principal); N18.6 End stage renal disease; Z94.0 Kidney transplant status

== ENCOUNTER → 2022-03-02 | Outpatient (CLI) | payer OTHER ==
[2022-03-02 09:52] LABS: MEAN CELL VOLUME 86.4 fl (81.0-99.0); MEAN CORPUSCULAR HGB 26.6 pg (27.0-31.0); MEAN CORPUSCULAR HGB CONC 30.8 g/dl (33.0-37.0); MEAN PLATELET VOLUME 12.1 fl (9.6-12.3); RED BLOOD COUNT 4.4 10*6/uL (4.10-5.10); RED CELL DISTRI WIDTH 14.9 % (0-14.5); WHITE BLOOD COUNT 8.1 10*3/uL (4.8-10.8)
[2022-03-02 10:13] LABS: CREATININE 1.2 mg/dL (0.55-1.02); POTASSIUM 4.3 mmol/L (3.5-5.1); TOTAL PROTEIN 7.2 gm/dL (6.4-8.2)
== END | disposition home or self-care (01) ==
LOC: LAB 09:37
PROVIDERS: ATTEND Family Medicine
DX: E78.00 Pure hypercholesterolemia, unspecified (principal)

== ENCOUNTER → 2022-03-24 | Outpatient (CLI) | payer OTHER | END | disposition home or self-care (01) | LOC: US 08:54 | PROVIDERS: ATTEND Family Medicine | DX: E83.39 Other disorders of phosphorus metabolism (principal); N26.1 Atrophy of kidney (terminal) ==

== ENCOUNTER → 2022-07-08 | Outpatient (CLI) | payer OTHER ==
[~2022-07-08] MED LIST changes: +ATORVASTATIN CA10 M1 PO; +CYCLOSPORINE25 M2 PO; +DIOVAN320 MG PO; +LATANOPROST2.5 ML OP; +NORVASC5 MG PO; +RAPAMUNE1 MG PO; +TACROLIMUS30 G1 T; +TOPROL XL100 MG PO; +VITAMIN D325 MCG PO
[2022-07-08 10:19] LABS: HEMATOCRIT 36.7 % (37.0-47.0); MEAN CELL VOLUME 89.7 fl (81.0-99.0); MEAN CORPUSCULAR HGB 27.1 pg (27.0-31.0); MEAN CORPUSCULAR HGB CONC 30.2 g/dl (33.0-37.0); MEAN PLATELET VOLUME 12.1 fl (9.6-12.3); RED BLOOD COUNT 4.09 10*6/uL (4.10-5.10); RED CELL DISTRI WIDTH 14.6 % (0-14.5); WHITE BLOOD COUNT 6.5 10*3/uL (4.8-10.8)
[2022-07-08 10:45] LABS: BUN 30 mg/dl (7-24); CHLORIDE 117 mmol/L (98-107); CHOLESTEROL 148 mg/dL (<200); POTASSIUM 4.6 mmol/L (3.5-5.1); SGOT/AST 14 IU/L (3-35); SGPT/ALT 16 U/L (12-78); SODIUM 145 mmol/L (136-145); TRIGLYCERIDES 177 mg/dl (<150)
[2022-07-08 10:47] LABS: ALKALINE PHOSPHATASE 132 U/L (45-117); CPK 63 U/L (26-192); LDL CHOLESTEROL 67 mg/dL (9-159); TOTAL PROTEIN 6.8 gm/dL (6.4-8.2)
[2022-07-08 11:17] LABS: VITAMIN D, 25-HYDROXY 35.1 ng/mL (30-100)
== END | disposition home or self-care (01) ==
LOC: LAB 09:36
PROVIDERS: ATTEND Family Medicine
DX: M16.11 Unilateral primary osteoarthritis, right hip (principal); E78.00 Pure hypercholesterolemia, unspecified; E55.9 Vitamin D deficiency, unspecified; I10 Essential (primary) hypertension; I70.201 Unspecified atherosclerosis of native arteries of extremities, right leg; M25.751 Osteophyte, right hip; E11.9 Type 2 diabetes mellitus without complications

== ENCOUNTER 2022-07-12 16:39 | Emergency (ER) | payer OTHER ==
[~2022-07-12] VITALS: Ht 165.1 cm; Wt 97.5 kg
[~2022-07-12 16:39] MED LIST changes: -ATORVASTATIN CA10 M1 PO; -CYCLOSPORINE25 M2 PO; -DIOVAN320 MG PO; -LATANOPROST2.5 ML OP; -NORVASC5 MG PO; -RAPAMUNE1 MG PO; -TACROLIMUS30 G1 T; -TOPROL XL100 MG PO; -VITAMIN D325 MCG PO
[2022-07-12] MEDS ORDERED: LATANOPROST2.5 ML OP (17:56)
[2022-07-12] MEDS ORDERED: ATORVASTATIN CA10 M1 PO (17:56)
[2022-07-12] MEDS ORDERED: TACROLIMUS30 G1 T (17:56)
[2022-07-12] MEDS ORDERED: TOPROL XL100 MG PO (17:58)
[2022-07-12] MEDS ORDERED: CYCLOSPORINE25 M2 PO (17:58)
[2022-07-12] MEDS ORDERED: DIOVAN320 MG PO (17:59)
[2022-07-12] MEDS ORDERED: VITAMIN D325 MCG PO (18:00)
[2022-07-12] MEDS ORDERED: RAPAMUNE1 MG PO (18:02)
[2022-07-12 18:37] LABS: BASO # 0.1 10*3/uL (0.0-0.1); BASO % 0.9 % (0.0-1.0); EOS # 0.3 10*3/uL (0.0-0.4); EOS % 3.8 % (1.0-4.0); HEMATOCRIT 37.5 % (37.0-47.0); LYMPH # 1.5 10*3/uL (1.3-4.4); LYMPH % 18.6 % (27.0-41.0); MEAN CELL VOLUME 89.1 fl (81.0-99.0); MEAN CORPUSCULAR HGB 27.1 pg (27.0-31.0); MEAN CORPUSCULAR HGB CONC 30.4 g/dl (33.0-37.0); MEAN PLATELET VOLUME 12.8 fl (9.6-12.3); MONO # 0.8 10*3/uL (0.1-1.0); MONO % 9.3 % (3.0-9.0); NEUT # 5.4 10*3/uL (2.3-7.9); PLATELET COUNT AUTOMATED 199 10*3/uL (130-400); RED BLOOD COUNT 4.21 10*6/uL (4.10-5.10); RED CELL DISTRI WIDTH 14.3 % (0-14.5); WHITE BLOOD COUNT 8.1 10*3/uL (4.8-10.8)
[2022-07-12 18:52] LABS: ACT PARTIAL THROMBO TIME 24.3 SECONDS (20.0-32.1); CREATININE 1.21 mg/dL (0.55-1.02); POTASSIUM 4.9 mmol/L (3.5-5.1); TOTAL PROTEIN 7.1 gm/dL (6.4-8.2)
[2022-07-12 20:36] VITALS: BP 180/60
[2022-07-12] MEDS ORDERED: NORVASC5 MG PO (20:40)
== END 2022-07-12 21:26 | disposition home or self-care (01) ==
LOC: ED 16:39
PROVIDERS: Emergency Medicine
DX: I10 Essential (primary) hypertension (principal); N17.9 Acute kidney failure, unspecified; E44.0 Moderate protein-calorie malnutrition; I16.0 Hypertensive urgency

== ENCOUNTER → 2022-08-26 | Outpatient (CLI) | payer OTHER ==
[~2022-08-26] MED LIST changes: +ATORVASTATIN CA10 M1 PO; +CYCLOSPORINE25 M2 PO; +DIOVAN320 MG PO; +LATANOPROST2.5 ML OP; +NORVASC5 MG PO; +RAPAMUNE1 MG PO; +TACROLIMUS30 G1 T; +TOPROL XL100 MG PO; +VITAMIN D325 MCG PO
[2022-08-26 10:11] LABS: BASO # 0.1 10*3/uL (0.0-0.1); EOS # 0.4 10*3/uL (0.0-0.4); EOS % 4.5 % (1.0-4.0); HEMATOCRIT 35.9 % (37.0-47.0); LYMPH # 1.3 10*3/uL (1.3-4.4); LYMPH % 16.1 % (27.0-41.0); MEAN CELL VOLUME 89.8 fl (81.0-99.0); MEAN CORPUSCULAR HGB 27.3 pg (27.0-31.0); MEAN CORPUSCULAR HGB CONC 30.4 g/dl (33.0-37.0); MEAN PLATELET VOLUME 12.2 fl (9.6-12.3); MONO # 0.9 10*3/uL (0.1-1.0); MONO % 11.3 % (3.0-9.0); NEUT # 5.2 10*3/uL (2.3-7.9); NEUT % 66.6 % (47.0-73.0); PLATELET COUNT AUTOMATED 233 10*3/uL (130-400); WHITE BLOOD COUNT 7.8 10*3/uL (4.8-10.8)
[2022-08-26 10:39] LABS: CREATININE 1.33 mg/dL (0.55-1.02); POTASSIUM 4.6 mmol/L (3.5-5.1)
[2022-08-27 12:07] LABS: CYCLOSPORINE, BLOOD 572 ng/mL (100-400)
== END ==
LOC: LAB 09:22
PROVIDERS: ATTEND Internal Medicine Nephrology
DX: N18.9 Chronic kidney disease, unspecified (principal); E78.5 Hyperlipidemia, unspecified; Z79.899 Other long term (current) drug therapy

== ENCOUNTER → 2022-09-12 | Outpatient (CLI) | payer OTHER | END | disposition home or self-care (01) | LOC: LAB 10:09 | PROVIDERS: ATTEND Internal Medicine Nephrology | DX: N18.9 Chronic kidney disease, unspecified (principal); E78.5 Hyperlipidemia, unspecified; Z94.83 Pancreas transplant status; Z94.0 Kidney transplant status; Z79.899 Other long term (current) drug therapy ==

== ENCOUNTER → 2023-05-05 | Outpatient (CLI) | payer OTHER ==
[2023-05-05 11:13] LABS: HEMATOCRIT 36.8 % (37.0-47.0); MEAN CELL VOLUME 89.5 fl (81.0-99.0); MEAN CORPUSCULAR HGB 27.7 pg (27.0-31.0); MEAN PLATELET VOLUME 12.6 fl (9.6-12.3); RED BLOOD COUNT 4.11 10*6/uL (4.10-5.10); RED CELL DISTRI WIDTH 15.1 % (0-14.5); WHITE BLOOD COUNT 6.9 10*3/uL (4.8-10.8)
[2023-05-05 11:40] LABS: URINE CREATININE RANDOM 55.44 mg/dL
[2023-05-05 11:41] LABS: POTASSIUM 4.3 mmol/L (3.4-5.1)
[2023-05-06 18:06] LABS: CYCLOSPORINE, BLOOD 423 ng/mL (100-400)
== END | disposition home or self-care (01) ==
LOC: LAB 10:07
PROVIDERS: ATTEND Internal Medicine Nephrology
DX: E74.9 Disorder of carbohydrate metabolism, unspecified (principal); Z94.0 Kidney transplant status; Z79.899 Other long term (current) drug therapy

== ENCOUNTER → 2023-07-31 | Outpatient (CLI) | payer OTHER ==
[2023-07-31 10:10] LABS: HEMATOCRIT 38.4 % (37.0-47.0); MEAN CELL VOLUME 89.3 fl (81.0-99.0); MEAN CORPUSCULAR HGB 27.4 pg (27.0-31.0); MEAN CORPUSCULAR HGB CONC 30.7 g/dl (33.0-37.0); MEAN PLATELET VOLUME 12.1 fl (9.6-12.3); RED BLOOD COUNT 4.3 10*6/uL (4.10-5.10); RED CELL DISTRI WIDTH 14.6 % (0-14.5); WHITE BLOOD COUNT 6.5 10*3/uL (4.8-10.8)
[2023-07-31 10:41] LABS: POTASSIUM 4.4 mmol/L (3.4-5.1); TOTAL PROTEIN 6.7 gm/dL (6.0-8.0)
== END | disposition home or self-care (01) ==
LOC: LAB 09:40
PROVIDERS: ATTEND Family Medicine
DX: I10 Essential (primary) hypertension (principal); E78.00 Pure hypercholesterolemia, unspecified; N19 Unspecified kidney failure; Z94.0 Kidney transplant status

== ENCOUNTER → 2023-10-02 | Outpatient (CLI) | payer OTHER ==
[2023-10-02 09:46] LABS: MEAN CELL VOLUME 89.3 fl (81.0-99.0); MEAN CORPUSCULAR HGB 27.2 pg (27.0-31.0); MEAN CORPUSCULAR HGB CONC 30.5 g/dl (33.0-37.0); MEAN PLATELET VOLUME 12.3 fl (9.6-12.3); RED BLOOD COUNT 4.48 10*6/uL (4.10-5.10); RED CELL DISTRI WIDTH 14.6 % (0-14.5); WHITE BLOOD COUNT 7.2 10*3/uL (4.8-10.8)
[2023-10-02 10:33] LABS: POTASSIUM 5.7 mmol/L (3.4-5.1); TOTAL PROTEIN 6.8 gm/dL (6.0-8.0)
== END | disposition home or self-care (01) ==
LOC: LAB 09:15
PROVIDERS: ATTEND Family Medicine
DX: E78.00 Pure hypercholesterolemia, unspecified (principal); I10 Essential (primary) hypertension; D64.9 Anemia, unspecified; E55.9 Vitamin D deficiency, unspecified

== ENCOUNTER → 2024-02-19 | Outpatient (CLI) | payer OTHER | END | disposition home or self-care (01) | LOC: MAMMO 01:18 | PROVIDERS: ATTEND Internal Medicine Nephrology | DX: Z12.31 Encounter for screening mammogram for malignant neoplasm of breast (principal); R92.333 Mammographic heterogeneous density, bilateral breasts; N64.89 Other specified disorders of breast ==

== ENCOUNTER → 2024-10-03 | Outpatient (CLI) | payer OTHER | END | disposition home or self-care (01) | LOC: CARD 12:17 | PROVIDERS: ATTEND Internal Medicine Nephrology | DX: I08.1 Rheumatic disorders of both mitral and tricuspid valves (principal); I95.0 Idiopathic hypotension ==